=== PATIENT | female | born 1995 | race African-American/Black ===

== ENCOUNTER 2024-03-17 23:45 | Emergency (ER) | payer MEDICAID ==
[~2024-03-17] VITALS: Ht 167.6 cm; Wt 78.0 kg
[2024-03-18 00:05] VITALS: O2SAT 100
[2024-03-18 00:43] VITALS: TEMP 98.5; O2SAT 100
[2024-03-18 01:47] VITALS: BP 101/79; PULSE 100; RESP 16
[2024-03-18] MEDS: IBUPROFEN 400MG TABLET PO ONE (01:47)
== END 2024-03-18 01:46 | disposition home or self-care (01) ==
LOC: ER 23:45
DX: R51.9 Headache, unspecified (principal); Z90.89 Acquired absence of other organs
CPT/HCPCS: 99282

== ENCOUNTER 2024-05-27 11:13 | Emergency (ER) | payer MEDICAID ==
[~2024-05-27] VITALS: Ht 167.6 cm; Wt 73.0 kg
[2024-05-27 11:14] VITALS: O2SAT 99
[2024-05-27 11:35] VITALS: BP 125/84; PULSE 102; RESP 16; TEMP 37; O2SAT 99
== END 2024-05-27 15:38 | disposition left against medical advice (07) ==
LOC: ER 11:13
DX: S81.851A Open bite, right lower leg, initial encounter (principal); Z53.21 Procedure and treatment not carried out due to patient leaving prior to being seen by health care provider; W54.0XXA Bitten by dog, initial encounter; Y93.89 Activity, other specified; Y92.89 Other specified places as the place of occurrence of the external cause; Y99.8 Other external cause status

== ENCOUNTER 2024-10-14 19:48 | Emergency (ER) | payer MEDICAID ==
[~2024-10-14] VITALS: Ht 167.6 cm; Wt 82.0 kg
[2024-10-14 20:08] VITALS: O2SAT 99
[2024-10-14 20:09] VITALS: BP 132/53; PULSE 77; RESP 18; TEMP 36.8; O2SAT 98
[2024-10-14] MEDS: DIPHENHYDRAMINE 12.5MG/5ML UDC PO ONE (20:30)
[2024-10-14] MEDS: FAMOTIDINE 20MG TABLET PO ONE (20:44)
[2024-10-14] MEDS ORDERED: DIPH103G TP (21:58)
[2024-10-14] MEDS ORDERED: DIPH25CA83 MT (21:58)
== END 2024-10-14 22:10 | disposition home or self-care (01) ==
LOC: ER 19:48
DX: T63.441A Toxic effect of venom of bees, accidental (unintentional), initial encounter (principal); R60.0 Localized edema; Z90.89 Acquired absence of other organs; Y92.89 Other specified places as the place of occurrence of the external cause
CPT/HCPCS: 99283; Q0163